=== PATIENT | male | born 1955 | race Native Hawaiian/Other Pacific Islander ===

== ENCOUNTER 2017-09-14 07:45 | Day surgery (SDC) | payer BC ==
[2017-09-14] MEDS ORDERED: Lactated Ringer's 500 ML IV ONE (07:55)
[2017-09-14 08:10] VITALS: TEMP 97; O2SAT 99
[2017-09-14] MEDS ORDERED: Propofol 10 mg/ml Inj (20 ML) ONE (08:19)
[2017-09-14 09:13] VITALS: BP 106/70; PULSE 65; RESP 3
== END 2017-09-14 12:36 | disposition home or self-care (01) ==
LOC: H.ENDO 07:45
PROVIDERS: ATTEND Internal Medicine Gastroenterology
DX: K29.50 Unspecified chronic gastritis without bleeding (principal); B96.81 Helicobacter pylori [H. pylori] as the cause of diseases classified elsewhere; K31.89 Other diseases of stomach and duodenum; K75.9 Inflammatory liver disease, unspecified; Z12.11 Encounter for screening for malignant neoplasm of colon; K63.5 Polyp of colon; K64.0 First degree hemorrhoids; E11.9 Type 2 diabetes mellitus without complications; B18.1 Chronic viral hepatitis B without delta-agent; K44.9 Diaphragmatic hernia without obstruction or gangrene
CPT/HCPCS: 43239; 45380; 82948; 88305; J2001; J2704; J7120